=== PATIENT | female | born 1990 ===

== ENCOUNTER 2020-09-12 12:32 | Emergency (ER) | payer OTHER ==
[~2020-09-12] VITALS: Ht 170.2 cm; Wt 81.7 kg
[2020-09-12] MEDS ORDERED: IBUP200 (13:06)
[2020-09-12] MEDS ORDERED: IBUP800 PO (14:20)
[2020-09-12] MEDS ORDERED: LIDO700A20 TOP (14:20)
== END 2020-09-12 14:55 | disposition home or self-care (01) ==
LOC: ER 12:32
DX: S39.012A Strain of muscle, fascia and tendon of lower back, initial encounter (principal); K59.00 Constipation, unspecified; W01.0XXA Fall on same level from slipping, tripping and stumbling without subsequent striking against object, initial encounter
CPT/HCPCS: 72100; 73502; 96372; 99283-25; A9270; J1885